=== PATIENT | male | born 1955 | race Caucasian/White ===

== ENCOUNTER → 2017-08-03 | Outpatient (CLI) | payer MEDICARE, MEDICAID ==
[2017-08-03 07:12] LABS: HEMOGLOBIN 13.9 g/dL (14.1-18.0); LYMPH # 1.7 K/mm3 (0.7-4.5)
[2017-08-03 09:33] LABS: BUN 16 mg/dL (7-18)
[2017-08-03 09:36] LABS: GFR (ESTIMATED) 68 ML/MIN (>60)
[2017-08-07 03:37] LABS: 1,25-Dihydroxy, Vitamin D-2 14 pg/mL (.); 1,25-Dihydroxy, Vitamin D-3 35 pg/mL (.); Total 1,25-Dihydroxy,Vitamin D 49 pg/mL (.)
== END ==
LOC: LAB 06:59
PROVIDERS: Nurse Practitioner Family
DX: I10 Essential (primary) hypertension (principal); E78.5 Hyperlipidemia, unspecified; E55.9 Vitamin D deficiency, unspecified

== ENCOUNTER → 2017-08-08 | Outpatient (CLI) | payer MEDICARE, MEDICAID ==
[~2017-08-08] MED LIST: ANTIBIOTIC PO; CHOLESTEROL PO; FLEXERIL10 M1 PO; FLEXERIL10 MG PO; IBU800 M1 PO; LEVOTHYROXINE0.05 M2 PO; PREDNISONE 20MG20 MG PO; PRILOSEC20 MG PO; SIMVASTATIN40 MG PO; TYLENOL W/CODEI1 TA1 PO; ULTRAM50 MG PO
== END ==
LOC: LAB 11:06
DX: R73.9 Hyperglycemia, unspecified (principal)

== ENCOUNTER 2017-10-10 00:49 | Emergency (ER) | payer MEDICARE, MEDICAID ==
[~2017-10-10] VITALS: Ht 180.3 cm; Wt 97.5 kg
--- OUTSIDE RECORDS SUMMARY | 2017-10-10 01:17 | External Medical Summary Rpt ---
Author Author [employer], [employer] Organization [employer] Address Unknown Phone Unavailable Results Hemoglobin A1c in Blood Observa Value Referen Units Interpr Notes Date tion ce etation Range Hemoglo 6.1 0.0 - % Normal < 6% Aug 08 bin A1c 7.0 NON-JUS 2017 in BETIC 11:07 Blood LEVEL< AM 7% CONTROL LED DIABETI C LEVEL> 8% POORLY CONTROL LED DIABETI C LEVEL 1,25-Dihydroxy,Vitamin D by MS Observa Value Referen Units Interpr Notes Date tion ce etation Range 1,25-Dihy . pg/mL No No Aug 03 droxyvita informati informati 2016 7:02 min D2 on in on in AM [Mass/vol source source ume] in data data Serum or Plasma Calcitrio . pg/mL No Performed Aug 03 l informati at: ES 2016 7:02 [Mass/vol on in - AM ume] in source Es[employer]ix Serum or data Endocrino Plasma [id number] [place], [place] [id number] Wheel Loader Operator: Bam Alberts MD, Phone: [phone] 1 1,25-Dihy . pg/mL No Reference Aug 03 droxyvita informati 2016 7:02 min D on in Range:Stephon AM [Mass/vol source lts: 21 - ume] in data 65 Serum or Plasma Comprehensive metabolic 2000 panel in Serum or Plasma Observa Value Referen Units Interpr Notes Date tion ce etation Range Albumin/G 1.1 - 1.8 No Normal No Sep lobulin informati informati 2016 7:02 [Mass on in on in AM ratio] in source source Serum or data data Plasma Albumin 3.4 - 5.0 gm/dL Normal No Sep 29 [Mass/vol informati 2017 7:02 ume] in on in AM Serum or source Plasma data Alkaline 46 - 116 U/L Normal No Aug 03 phosphata informati 2017 7:02 se on in AM [Enzymati source c data activity/ volume] in Serum or Plasma Bilirubin 0.2 - 1.0 mg/dL Normal No Sep 29 .total informati 2017 7:02 [Mass/vol on in AM ume] in source Serum or data Plasma Urea 7 - 18 mg/dL Normal No Sep 29 nitrogen informati 2017 7:02 [Mass/vol on in AM ume] in source Serum or data Plasma Calcium 8.5 - mg/dL Normal No Sep 29 [Mass/vol 10.1 informati 2017 7:02 ume] in on in AM Serum or source Plasma data Chloride 98 - 107 mmoL/L High No Sep 29 [Moles/vo informati 2017 7:02 lume] in on in AM Serum or source Plasma data Carbon 21.0 - mmoL/L Normal No Sep 29 dioxide, 32.0 informati 2017 7:02 total on in AM [Moles/vo source lume] in data Serum or Plasma Creatinin 0.70 - mg/dL Normal No Sep 29 e 1.30 informati 2016 7:02 [Mass/vol on in AM ume] in source Serum or data Plasma Estimated >60 ML/MIN No REFERENCE Sep 29 informati RANGE: 2017 7:02 glomerula on in >60 AM r source ML/MIN/1. filtratio data 73 SQUARE n rate METERSIf (GF this patient is -A merican, then multiply theresult by 1.210. Globulin 1.3 - 3.2 gm/dL Normal No Sep 29 [Mass/vol informati 2017 7:02 ume] in on in AM Serum source data Glucose 74 - 106 mg/dL High No Sep 29 [Mass/vol informati 2017 7:02 ume] in on in AM Serum or source Plasma data Potassium 3.5 - 5.1 mmoL/L Normal No Sep 29 informati 2017 7:02 [Moles/vo on in AM lume] in source Serum or data Plasma Sodium 136 - 145 mmoL/L Normal No Sep 29 [Moles/vo informati 2017 7:02 lume] in on in AM Serum or source Plasma data Aspartate 15 - 37 U/L Normal No Sep 29 informati 2017 7:02 aminotran on in AM sferase source [Enzymati data c activity/ volume] in Serum or Plasma Alanine 12 - 78 U/L Normal No Sep 29 aminotran informati 2017 7:02 sferase on in AM [Enzymati source c data activity/ volume] in Serum or Plasma Protein 6.4 - 8.2 gm/dL Normal No Sep 29 [Mass/vol informati 2017 7:02 ume] in on in AM Serum or source Plasma data Thyroxine (T4) free [Mass/volume] in Serum or Plasma Observa Value Referen Units Interpr Notes Date tion ce etation Range Thyroxine 0.76 - ng/dL Normal No Sep 29 (T4) 1.46 informati 2017 7:02 free on in AM [Mass/vol source ume] in data Serum or Plasma Lipid 1996 panel in Serum or Plasma Observa Value Referen Units Interpr Notes Date tion ce etation Range Cholester < 200 mg/dL No No Sep 29 ol informati informati 2017 7:02 [Moles/vo on in on in AM lume] in source source Unspecifi data data ed specimen Cholester 40 - 60 MG/DL Low No Sep 29 ol in HDL informati 2017 7:02 on in AM [Mass/vol source ume] in data Serum or Plasma Cholester 0 - 130 mg/dL Normal No Sep 29 ol in LDL informati 2017 7:02 on in AM [Mass/vol source ume] in data Serum or Plasma by calculati on Triglycer 30 - 200 mg/dL High No Sep 29 yessenia informati 2017 7:02 [Moles/vo on in AM lume] in source Serum or data Plasma Cholester 0 - 40 No High No Sep 29 ol in informati informati 2017 7:02 VLDL on in on in AM [Mass/vol source source ume] in data data Serum or Plasma Thyrotropin [Units/volume] in Serum or Plasma Observa Value Referen Units Interpr Notes Date tion ce etation Range Thyrotrop 0.358 - uIU/ml No No Sep 29 in 3.740 informati informati 2017 7:02 [Units/vo on in on in AM lume] in source source Serum or data data Plasma CBC W Auto Differential panel in Blood Observa Value Referen Units Interpr Notes Date tion ce etation Range Granulocy 1.3 - 8.0 K/mm3 Normal No Sep 29 mari informati 2017 7:02 [#/volume on in AM ] in source Blood by data Automated count Granulocy 37.0 - % Normal No Sep 29 mari/100 80.0 informati 2017 7:02 leukocyte on in AM s in source Blood by data Automated count Hematocri 42.0 - % Low No Sep 29 t [Volume 52.0 informati 2017 7:02 on in AM Fraction] source of Blood data Hemoglobi 14.1 - g/dL Low No Sep 29 n 18.0 informati 2017 7:02 [Mass/vol on in AM ume] in source Blood data Lymphocyt 0.7 - 4.5 K/mm3 Normal No Sep 29 es informati 2017 7:02 [#/volume on in AM ] in source Unspecifi data ed specimen by Automated count Lymphocyt 10 - 50 % Normal No Sep 29 es informati 2017 7:02 [#/volume on in AM ] in source Unspecifi data ed specimen by Automated count Erythrocy 27 - 31.2 pg Normal No Sep 29 te mean informati 2017 7:02 corpuscul on in AM ar source hemoglobi data n [Entitic mass] Erythrocy 31.8 - g/dl Normal No Sep 29 te mean 35.4 informati 2016 7:02 corpuscul on in AM ar source hemoglobi data n concentra tion [Mass/vol ume] by Automated count Erythrocy 82.2 - fL Normal No Sep 29 te mean 97.8 informati 2017 7:02 corpuscul on in AM ar volume source [Entitic data volume] by Automated count Monocytes 0.1 - 1.0 K/mm3 Normal No Sep 29 informati 2017 7:02 [#/volume on in AM ] in source Blood by data Automated count Monocytes 1.7 - 9.3 % Normal No Sep 29 /100 informati 2017 7:02 leukocyte on in AM s in source Blood by data Automated count Platelets 142 - 424 K/mm3 Low No Sep 29 informati 2017 7:02 [#/volume on in AM ] in source Blood data Erythrocy 4.6 - 6.2 M/mm3 Normal No Sep 29 mari informati 2017 7:02 [#/volume on in AM ] in source Amniotic data fluid Erythrocy 11.5 - % Normal No Sep 29 te 17.5 informati 2017 7:02 distribut on in AM ion width source [Entitic data volume] by Automated count Leukocyte 4.8 - K/mm3 Normal No Sep 29 s 10.8 informati 2016 7:02 [#/volume on in AM ] in source Blood data 1,25-Dihydroxy,Vitamin D by MS Observa Value Referen Units Interpr Notes Date tion ce etation Range 1,25-Dihy . pg/mL No No May 07 droxyvita informati informati 2016 7:00 min D2 on in on in AM [Mass/vol source source ume] in data data Serum or Plasma Calcitrio . pg/mL No Performed May 07 l informati at: ES 2016 7:00 [Mass/vol on in - AM ume] in source [employer] Serum or data Endocrino Plasma [id number] [place], [place] [id number] Wheel Loader Operator: Bam Alberts MD, Phone: [phone] 1 1,25-Dihy . pg/mL No Reference May 07 droxyvita informati 2016 7:00 min D on in Range:Stephon AM [Mass/vol source lts: 21 - ume] in data 65 Serum or Plasma Comprehensive metabolic 2000 panel in Serum or Plasma Observa Value Referen Units Interpr Notes Date tion ce etation Range Albumin/G 1.1 - 1.8 No Normal No May 07 lobulin informati informati 2016 7:00 [Mass on in on in AM ratio] in source source Serum or data data Plasma Albumin 3.4 - 5.0 gm/dL Normal No May 07 [Mass/vol informati 2016 7:00 ume] in on in AM Serum or source Plasma data Alkaline 46 - 116 U/L Normal No May 07 phosphata informati 2016 7:00 se on in AM [Enzymati source c data activity/ volume] in Serum or Plasma Bilirubin 0.2 - 1.0 mg/dL Normal No May 07 .total informati 2016 7:00 [Mass/vol on in AM ume] in source Serum or data Plasma Urea 7 - 18 mg/dL Normal No May 07 nitrogen informati 2016 7:00 [Mass/vol on in AM ume] in source Serum or data Plasma Calcium 8.5 - mg/dL Normal No May 07 [Mass/vol 10.1 informati 2016 7:00 ume] in on in AM Serum or source Plasma data Chloride 98 - 107 mmoL/L Normal No May 07 [Moles/vo informati 2016 7:00 lume] in on in AM Serum or source Plasma data Carbon 21.0 - mmoL/L Normal No May 07 dioxide, 32.0 informati 2016 7:00 total on in AM [Moles/vo source lume] in data Serum or Plasma Creatinin 0.70 - mg/dL Normal No May 07 e 1.30 informati 2016 7:00 [Mass/vol on in AM ume] in source Serum or data Plasma Estimated >60 ML/MIN No REFERENCE May 07 informati RANGE: 2017 7:00 glomerula on in >60 AM r source ML/MIN/1. filtratio data 73 SQUARE n rate METERSIf (GF this patient is -A merican, then multiply theresult by 1.210. Globulin 1.3 - 3.2 gm/dL Normal No May 07 [Mass/vol informati 2016 7:00 ume] in on in AM Serum source data Glucose 74 - 106 mg/dL High No May 07 [Mass/vol informati 2016 7:00 ume] in on in AM Serum or source Plasma data Potassium 3.5 - 5.1 mmoL/L Normal No May 07 informati 2016 7:00 [Moles/vo on in AM lume] in source Serum or data Plasma Sodium 136 - 145 mmoL/L Normal No May 07 [Moles/vo informati 2016 7:00 lume] in on in AM Serum or source Plasma data Aspartate 15 - 37 U/L Normal No May 07 informati 2016 7:00 aminotran on in AM sferase source [Enzymati data c activity/ volume] in Serum or Plasma Alanine 12 - 78 U/L Normal No May 07 aminotran informati 2016 7:00 sferase on in AM [Enzymati source c data activity/ volume] in Serum or Plasma Protein 6.4 - 8.2 gm/dL Normal No May 07 [Mass/vol informati 2016 7:00 ume] in on in AM Serum or source Plasma data Thyroxine (T4) free [Mass/volume] in Serum or Plasma Observa Value Referen Units Interpr Notes Date tion ce etation Range Thyroxine 0.76 - ng/dL Normal No May 07 (T4) 1.46 informati 2016 7:00 free on in AM [Mass/vol source ume] in data Serum or Plasma Lipid 1996 panel in Serum or Plasma Observa Value Referen Units Interpr Notes Date tion ce etation Range Cholester < 200 mg/dL No No May 07 ol informati informati 2016 7:00 [Moles/vo on in on in AM lume] in source source Unspecifi data data ed specimen Cholester 40 - 60 MG/DL Low No May 07 ol in HDL inform2016 7:00 on in AM [Mass/vol source ume] in data Serum or Plasma Cholester 0 - 130 mg/dL Normal No May 07 ol in LDL 2016 7:00 on in AM [Mass/vol source ume] in data Serum or Plasma by calculati on Triglycer 30 - 200 mg/dL High No May 07 yessenia 2016 7:00 [Moles/vo on in AM lume] in source Serum or data Plasma Cholester 0 - 40 No High No May 07 ol in informati informati 2016 7:00 VLDL on in on in AM [Mass/vol source source ume] in data data Serum or Plasma Thyrotropin [Units/volume] in Serum or Plasma Observa Value Referen Units Interpr Notes Date tion ce etation Range Thyrotrop 0.358 - uIU/ml High No May 07 in 3.740 informati 2016 7:00 [Units/vo on in AM lume] in source Serum or data Plasma CBC W Auto Differential panel in Blood Observa Value Referen Units Interpr Notes Date tion ce etation Range Basophils 0 - 0.2 K/MM3 Normal No May 07 inform2016 7:00 [#/volume on in AM ] in source Blood by data Automated count Basophils 0.1 - 2.0 % Normal No May 07 inform2016 7:00 leukocyte on in AM s in source Blood by data Automated count Eosinophi 0.0 - 0.4 K/mm3 Normal No May 07 ls 2016 7:00 [#/volume on in AM ] in source Blood by data Automated count Eosinophi 0.1 - % Normal No May 07 ls/100 12.0 informati 2016 7:00 leukocyte on in AM s in source Blood by data Automated count Granulocy 1.3 - 8.0 K/mm3 Normal No May 07 mari ati 2016 7:00 [#/volume on in AM ] in source Blood by data Automated count Granulocy 37.0 - % Normal No May 07 mari/100 80.0 informati 2016 7:00 leukocyte on in AM s in source Blood by data Automated count Hematocri 42.0 - % Low No May 07 t [Volume 52.0 informati 2016 7:00 on in AM Fraction] source of Blood data Hemoglobi 14.1 - g/dL Low No May 07 n 18.0 informati 2016 7:00 [Mass/vol on in AM ume] in source Blood data Lymphocyt 0.7 - 4.5 K/mm3 Normal No May 07 es informati 2016 7:00 [#/volume on in AM ] in source Unspecifi data ed specimen by Automated count Lymphocyt 10 - 50 % Normal No May 07 es informati 2016 7:00 [#/volume on in AM ] in source Unspecifi data ed specimen by Automated count Erythrocy 27 - 31.2 pg Normal No May 07 te mean informati 2016 7:00 corpuscul on in AM ar source hemoglobi data n [Entitic mass] Erythrocy 31.8 - g/dl Normal No May 07 te mean 35.4 informati 2016 7:00 corpuscul on in AM ar source hemoglobi data n concentra tion [Mass/vol ume] by Automated count Erythrocy 82.2 - fl Normal No May 07 te mean 97.8 informati 2016 7:00 corpuscul on in AM ar volume source [Entitic data volume] by Automated count Monocytes 0.1 - 1.0 K/mm3 Normal No May 07 informati 2016 7:00 [#/volume on in AM ] in source Blood by data Automated count Monocytes 1.7 - 9.3 % Normal No May 3 /100 informati 2017 7:00 leukocyte on in AM s in source Blood by data Automated count Platelet 7.4 - fl Normal No May 07 mean 10.4 informati 2016 7:00 volume on in AM [Entitic source volume] data in Blood by Automated count Platelets 142 - 424 K/mm3 Normal No May 07 informati 2017 7:00 [#/volume on in AM ] in source Blood data Erythrocy 4.6 - 6.2 M/mm3 Normal No May 07 mari informati 2017 7:00 [#/volume on in AM ] in source Amniotic data fluid Erythrocy 11.5 - % Normal No May 07 te 17.5 informati 2017 7:00 distribut on in AM ion width source [Entitic data volume] by Automated count Leukocyte 4.8 - K/MM3 Low No May 07 s 10.8 informati 2016 7:00 [#/volume on in AM ] in source Blood data
--- OUTSIDE RECORDS SUMMARY | 2017-10-10 01:17 | External Medical Summary Rpt | CCD ---
Author Author [employer] Organization [employer] Address Unknown Phone Unavailable Purpose Continuity of Care Document - through 2016
--- OUTSIDE RECORDS SUMMARY | 2017-10-10 01:17 | External Medical Summary Rpt | CCD ---
Author Author , [employer] Organization [employer] Address Unknown Phone [email or web address] Global Immunization Name Date Rout CVX Reac Dose Comm Prov Is Faci e tion ent ider Refu lity Give sed n Infl 08-0 150 0.5 Hist KHAF No RITE uenz 9-20 mL [facility] SHERIN AID0 a 17 al AYMA 3938 Quad Info N Inj rmat ion - Sour ce Unsp ecif ied Infl 08-0 141 999 Hist GSHA No GSHA uenz 9-20 ori NE NE a, 17 al Seas Info onal rmat ion - Sour ce Unsp ecif ied Td 03-1 Intr 9 999 Hist H149 No H149 (estiven 2-19 amus ori lt), 97 cula al r Info adso rmat rbed ion - Sour ce Unsp ecif ied
--- OUTSIDE RECORDS SUMMARY | 2017-10-10 01:17 | External Medical Summary Rpt | CCD ---
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 E03.8 OTHER SPECIFIED HYPOTHYROID ISM E55.9 VITAMIN D DEFICIENCY, UNSPECIFIED I10 ESSENTIAL (PRIMARY) HYPERTENSIO N R73.9 HYPERGLYCEM IA, UNSPECIFIED S73.102A UNSPECIFIED SPRAIN OF LEFT HIP, INITIAL ENCOUNTER Allergies, Adverse Reactions, Alerts Type Allergy to substance Adverse Reaction to Substance Substance Reaction Severity INGREDIENT: NO KNOWN Unknown Unknown - NO KNOWN DRUG ALLERGY Vital Signs 12-13-2013 16:27 Name Value Interpretat Reference Comment ion Range Body 98.0 [degF] Temperature BP 79 mm[Hg] Diastolic BP Systolic 117 mm[Hg] Heart 94 /min Rate/Pulse O2% 96 % Respiratory 20 /min Rate 12-13-2013 14:25 Name Value Interpretat Reference Comment ion Range BP 100 mm[Hg] Diastolic BP Systolic 142 mm[Hg] Heart 93 /min Rate/Pulse O2% 95 % Respiratory 20 /min Rate Results Labs Lab Lab Date Result Refere Interp Status Commen Order Detail nces retati t Range on Hemoglobin A1c in Blood (08-08-2017 11:07) Hemoglo 6.1 % 0.0% Normal complet bin A1c 017 - ed in 11:07 7.0% Blood Encounters Encounter Start End Date Code Location Performer Type Date Emergency ANGELLA Gonzalez MD (ER) 4 13:44 4 16:30 [facility]
--- OUTSIDE RECORDS SUMMARY | 2017-10-10 01:17 | External Medical Summary Rpt | CCD ---
Author Author , PEGGY Organization PEGGY Address Unknown Phone [email or web address] Immunization Name Date Rout CVX Reac Dose Comm Prov Is Faci e tion ent ider Refu lity Give sed n Infl 08-0 150 0.5 Hist KHAF No RITE uenz 9-20 mL [facility] SHERIN AID0 a 17 al AYMA 3938 [...]
--- OUTSIDE RECORDS SUMMARY | 2017-10-10 01:17 | External Medical Summary Rpt ---
[...] source [employer] Serum or data Endocrino Plasma [id number] [place], [place] [id number] Per Diem Rn: Bam Alberts MD, Phone: [phone] 1 1,25-Dihy . pg/mL No Reference Aug [...] source [employer] Serum or data Endocrino Plasma [id number] [place], [place] [id number] Per Diem Rn: Bam Alberts MD, Phone: [phone] 1 1,25-Dihy . pg/mL No Reference May [...]
--- OUTSIDE RECORDS SUMMARY | 2017-10-10 01:17 | External Medical Summary Rpt | CCD ---
Author Author , [employer]GGY Organization [employer]GG[employer] Address Unknown Phone [email or web address] Providers Care Blocking Machine Operator Name Role Phone Riley Gonzalez MD, Unavailable Unavailable Riley Gonzalez MD Purpose Continuity of Care Document - 12-13-2013 through 2016 Problems Code Diagnosis DOS Provider Status 721.3 721.3 12-13-2013 [place] LUMBOSACRAL [facility] SPONDYLOSIS 722.10 722.10 12-13-2013 [place] LUMBAR DISC [facility] DISPLACEMEN T E849.8 E849.8 12-13-2013 [place] ACCIDENT IN [facility] E885.9 E885.9 FALL 12-13-2013 Nicola FROM [facility] SLIPPING, Hospital TRIPPING, OR STUMBLING [facility] E03.8 OTHER SPECIFIED HYPOTHYROID ISM [...] Gonzalez MD (ER) 4 13:44 4 16:30 [facility]
--- NOTE | 2017-10-10 01:47 | Emergency Room Report ---
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 N Clinical Suspician of Infection? N Mental Status: 1 - Regular (Normal Baseline) Sepsis Risk:Possible Sepsis Risk Have you (or family members/close friends) recently traveled outside the [place]? N If Yes, where/when: Have you had exposure to infectious disease within the past month? N TB? Other? Specify: Source patient, RN notes reviewed, old records Exam Limitations no limitations Comment after hard cough had sharp pain to lt lat rib - no hemoptysis and no febrile illness and no tob Cardiac Chest Pain Chest pain indicative of cardiac No Timing/Duration this evening Severity moderate ALLERGIES Coded Allergies: No Known Allergies (04/04/16) Home Medications Reported Medications Omeprazole (Prilosec 20MG) 20 MG PO DAILY Simvastatin (Simvastatin 40MG Tab) 40 MG PO DAILY #30 Levothyroxine Sodium 0.05 MG PO DAILY #30 History Medical History General CAD? No Angina: No VT: No Hypertension? No Hyperlipidemia? Yes CHF? No DVT? No PE? No COPD? No Asthma? Yes Anemia? No GERD? No Gastric ulcers? No GI Bleed? No Hernia? No Thyroid Problems? Yes Hypothyroidism? No CVA? No Seizures? No Diabetes? No Renal Insuffiency? No End Stage Renal Disease? No UTI? No Stones? No BPH? No GB Disease: No Nephritic Syndrome? No Asplenia? No Hepatitis? No Sickle Cell Disease? No Arthritis? No Migraines? No Cataracts? No Glaucoma? No MRSA? No TB? No Cancer? No Immunization Hx DT/Tetanus > 10 YRS Surgical Hx Previous Surgery?Y HERNIA REPAIR CERVICAL DISC W PINS Social History Smoking Hx Smoker: Former Smoker Tobacco: No Alcohol Alcohol: No Drugs none Review of Systems All Other Systems Reviewed and Negative Constitutional denies fever Eyes denies drainage ENT denies: ear discharge, epistaxis, throat pain. Respiratory see HPI, cough, denies shortness of breath, other Cardiovascular see HPI, chest pain, denies syncope, other Gastrointestinal denies abdominal pain, denies diarrhea, denies vomiting Genitourinary denies: dysuria, frequency, hesitancy, hematuria. Musculoskeletal denies back pain, denies joint pain, denies joint swelling, denies neck pain Skin denies rash Psychiatric/Neurological denies headache, denies seizure Physical Exam Vital Signs Vital Signs Date Time Temp Pulse Resp B/P Pulse O2 O2 Flow FiO2 Ox Delivery Rate 10/10 0104 126 20 145/90 97 10/105 98.3 125 20 155/105 97 - WBC >12,000 or <4,000 or 10% bands? 2 or more SIRS Criteria Met? B/P:155/105 MAP:121 Creatinine >2.0? UA output<0.5ml/kg/hr for 2 hrs? Platelet count >100,000? Lactate >2.0mmol/1? INR >1.2 or PTT > than 60 sec? Evidence of Organ Dysfunction? Provider documented clinical suspician of infection? N Sepsis Criteria Count: 2 Sepsis Risk: Possible Sepsis Risk General Appearance no apparent distress Eye Exam - bilateral eye PERRL, bilateral eye EOMI Ear, Nose, Throat normal ENT inspection Neck supple Respiratory Status Yes: tender on palpation. No: respiratory distress. Lung Sounds bilateral: lungs clear. Cardiovascular no murmur, tachycardia Peripheral Pulses Pulses normal Yes Gastrointestinal soft Extremities normal inspection Strength 4 Upper Ext (L), 4 Upper Ext (R), 4 Lower Ext (L), 4 Lower Ext (R) Neurologic alert, dermatopathologist II-XII nml as tested, no motor/sensory deficits Reflexes Reflexes normal No Mental status normal mood/affect Skin intact, no rash cons.w/shingles Medical Decision Making LABS/Meds/Orders Pt receiving controlled substance in ED? No Results/Orders Current Medication Orders Sig/Yara Start time Last Medication Dose Route Stop Time Status Admin Acetaminophen/ 1 LISA ONCE ONE 10/10 200 AC Codeine Phosphate PO 10/10 201 Prednisone 20 MG ONCE ONE 10/10 200 AC PO 10/10 201 Orders Procedure Date/time Status [id number] [id number] 10/10 56 Active XRAY/CT/US XRAY/CT/US XRAY rib XR interpretation by reviewed by me Xray Results no fracture seen Departure Departure Time of Disposition 0143 Disposition DC Home or Self Care(routine) Clinical Impression Primary Impression: Rib sprain Qualifiers: Encounter type: initial encounter Qualified Code: S23.41XA - Sprain of ribs, initial encounter Condition STABLE Referrals Ritu Rojas APRN (Family) Patient Instructions DI for Rib Contusion Additional Instructions use meds and call pcp for follow up Discharge Counseling Counseled pt/family regarding diagnosis, test results, medications/RX, follow up needs ED Critical Care [place] Care No at 0151
--- NOTE | 2017-10-10 01:47 | Emergency Room Report ---
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 N Clinical Suspician of Infection? N Mental Status: 1 - Regular (Normal Baseline) Sepsis Risk:Possible Sepsis Risk Have you (or family members/close friends) recently traveled outside the [place]? N If Yes, where/when: Have you had exposure to infectious disease within the past month? N TB? Other? Specify: Source patient, RN notes reviewed, old records Exam Limitations no limitations Comment after hard cough had sharp pain to lt lat rib - no hemoptysis and no febrile illness and no tob Cardiac Chest Pain Chest pain indicative of cardiac No Timing/Duration this evening Severity moderate ALLERGIES Coded Allergies: No Known Allergies (04/04/16) Home Medications Reported Medications Omeprazole (Prilosec 20MG) 20 MG PO DAILY Simvastatin (Simvastatin 40MG Tab) 40 MG PO DAILY #30 Levothyroxine Sodium 0.05 MG PO DAILY #30 History Medical History General CAD? No Angina: No PA: No Hypertension? No Hyperlipidemia? Yes CHF? No DVT? No PE? No COPD? No Asthma? Yes Anemia? No GERD? No Gastric ulcers? No GI Bleed? No Hernia? No Thyroid Problems? Yes Hypothyroidism? No CVA? No Seizures? No Diabetes? No Renal Insuffiency? No End Stage Renal Disease? No UTI? No Stones? No BPH? No GB Disease: No Nephritic Syndrome? No Asplenia? No Hepatitis? No Sickle Cell Disease? No Arthritis? No Migraines? No Cataracts? No Glaucoma? No MRSA? No TB? No Cancer? No Immunization Hx DT/Tetanus > 10 YRS Surgical Hx Previous Surgery?Y HERNIA REPAIR CERVICAL DISC W PINS Social History Smoking Hx Smoker: Former Smoker Tobacco: No Alcohol Alcohol: No Drugs none Review of Systems All Other Systems Reviewed and Negative Constitutional denies fever Eyes denies drainage ENT denies: ear discharge, epistaxis, throat pain. Respiratory see HPI, cough, denies shortness of breath, other Cardiovascular see HPI, chest pain, denies syncope, other Gastrointestinal denies abdominal pain, denies diarrhea, denies vomiting Genitourinary denies: dysuria, frequency, hesitancy, hematuria. Musculoskeletal denies back pain, denies joint pain, denies joint swelling, denies neck pain Skin denies rash Psychiatric/Neurological denies headache, denies seizure Physical Exam Vital Signs Vital Signs Date Time Temp Pulse Resp B/P Pulse O2 O2 Flow FiO2 Ox Delivery Rate 10/10 0104 126 20 145/90 97 10/105 98.3 125 20 155/105 97 - WBC >12,000 or <4,000 or 10% bands? 2 or more SIRS Criteria Met? B/P:155/105 MAP:121 Creatinine >2.0? UA output<0.5ml/kg/hr for 2 hrs? Platelet count >100,000? Lactate >2.0mmol/1? INR >1.2 or PTT > than 60 sec? Evidence of Organ Dysfunction? Provider documented clinical suspician of infection? N Sepsis Criteria Count: 2 Sepsis Risk: Possible Sepsis Risk General Appearance no apparent distress Eye Exam - bilateral eye PERRL, bilateral eye EOMI Ear, Nose, Throat normal ENT inspection Neck supple Respiratory Status Yes: tender on palpation. No: respiratory distress. Lung Sounds bilateral: lungs clear. 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 No Results/Orders Current Medication Orders Sig/Yara Start time Last Medication Dose Route Stop Time Status Admin Acetaminophen/ 1 LISA ONCE ONE 10/10 200 AC Codeine Phosphate PO 10/10 201 Prednisone 20 MG ONCE ONE 10/10 200 AC PO 10/10 201 Orders Procedure Date/time Status [id number] VIEWS 10/10 56 Active XRAY/CT/US XRAY/CT/US XRAY rib XR interpretation by reviewed by me Xray Results no fracture seen Departure Departure Time of Disposition 0143 Disposition DC Home or Self Care(routine) Clinical Impression Primary Impression: Rib sprain Qualifiers: Encounter type: initial encounter Qualified Code: S23.41XA - Sprain of ribs, initial encounter Condition STABLE Referrals Ritu Rojas APRN (Family) Patient Instructions DI for Rib Contusion Additional Instructions use meds and call pcp for follow up Discharge Counseling Counseled pt/family regarding diagnosis, test results, medications/RX, follow up needs ED Critical Care Critical Care No at 0151
[2017-10-10 02:05] VITALS: BP 137/92
--- NOTE | 2017-10-10 05:19 | RADIOLOGY REPORT PS360 ---
[id number] VIEWS HISTORY: Left-sided chest pain/rib pain with cough COUGH, PAIN ORDERING PHYSICIAN: Riley Gonzalez MD PATIENT AGE: 62 years COMPARISON: None FINDINGS: A frontal view of the chest shows no acute finding. Multiple views of the Left ribs were obtained. No fracture or dislocation. No lytic or blastic change. IMPRESSION: Negative RIBS. If pain persists, consider follow-up exam in 7-[address] with 3-D reformats.
== END 2017-10-10 02:05 | disposition home or self-care (01) ==
LOC: ER 00:49
DX: S23.41XA Sprain of ribs, initial encounter (principal)